=== PATIENT | female | born 1965 | race Caucasian/White ===

== ENCOUNTER 2016-05-31 16:35 | Emergency (ER) | payer OTHER ==
[~2016-05-31] VITALS: Ht 165.1 cm; Wt 60.0 kg
[~2016-05-31 16:35] MED LIST: ESTR1TAB PO
[2016-05-31 16:46] VITALS: BP 151/100; PULSE 88; RESP 16; TEMP 98.1; O2SAT 96
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
[2016-05-31] MEDS ORDERED: IOHEXOL 350 MG/ML 10 ML VIAL (for RAD DIAG) IV ONE (17:50)
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
[2016-05-31] MEDS ORDERED: BACL10TA PO (18:11)
[2016-05-31] MEDS ORDERED: DICL75TA PO (18:11)
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
[2016-05-31] MEDS ORDERED: HYDR-3533 PO (18:23)
== END 2016-05-31 19:38 | disposition home or self-care (01) ==
LOC: NEPB 16:35
DX: S32.059A Unspecified fracture of fifth lumbar vertebra, initial encounter for closed fracture (principal); S16.1XXA Strain of muscle, fascia and tendon at neck level, initial encounter; V43.52XA Car driver injured in collision with other type car in traffic accident, initial encounter; Y92.410 Unspecified street and highway as the place of occurrence of the external cause
CPT/HCPCS: 72125; 72128; 72131; 73110; 99284; L0150; L0484; Q9967